=== PATIENT | male | born 1940 | race Caucasian/White ===

== ENCOUNTER 2019-03-06 09:38 | Emergency (ER) | payer OTHER, MEDICARE ==
[2019-03-06 09:45] VITALS: BP 192/73
--- NOTE | 2019-03-06 09:46 | EDPHY ---
H & P Stated Complaint: fall, lt rib pain Time Seen by Provider: 03/06/19 09:45 HPI/ROS: CHIEF COMPLAINT: Left anterior rib pain following mechanical fall HISTORY OF PRESENT ILLNESS: Patient is a pleasant 78-year-old [place] tripped and fell while going to the restroom last night striking his left anterior ribs on the toilet. He did not strike his head or lose consciousness. He has no complaints of headache, neck pain, abdominal pain , back pain or extremity complaints. The patient is not anticoagulated. The patient has moderate pain in the left anterior ribs which is worsened with deep breaths. The patient reports mild dyspnea. REVIEW OF SYSTEMS: Constitutional: normal mentation Eyes: No visual changes ENT: no oral trauma Respiratory: As above Cardiac: No chest pain Gastrointestinal: No nausea, no vomiting, no abdominal pain Genitourinary: No hematuria, no dysuria Musculoskeletal: no extremity pain Skin: no abrasions, no lacerations Neurological: No headache, no numbness, no weakness Back: No midline pain Source: Patient Exam Limitations: No limitations - Personal History Current Tetanus/Diphtheria Vaccine: No Current Tetanus Diphtheria and Acellular Pertussis (TDAP): No - Medical/Surgical History Hx Asthma: No Hx Chronic Respiratory Disease: No Hx Diabetes: Yes Hx Cardiac Disease: No Hx Renal Disease: No Hx Cirrhosis: No Hx Alcoholism: No Hx HIV/AIDS: No Hx Splenectomy or Spleen Trauma: No Other PMH: prostatectomy, pre-diabetic, arthritis, chronic pancreatitis - Social History Smoking Status: Never smoked - Physical Exam Exam: General Appearance: Alert, no distress Head: Atraumatic Eyes: Pupils equal, round, reactive ENT, Mouth: No hemotympanum, no oral trauma Neck: Nontender, trachea midline Respiratory: Tenderness to palpation left anterior chest wall, no deformity or subcutaneous emphysema noted, lungs clear to auscultation bilaterally Cardiovascular: Regular rate and rhythm Abdomen: Abdomen is soft and nontender, pelvis stable Skin: No lacerations, No abrasion Back: No midline T/L/S pain Extremities: Nontender, full range of motion Neurological: A&Ox3, normal motor function, normal sensory exam Constitutional: Initial Vital Signs Temperature (C) 36.5 C 03/06/19 09:40 Heart Rate 63 03/06/19 09:40 Respiratory Rate 16 03/06/19 09:40 Blood Pressure 192/73 H 03/06/19 09:40 O2 Sat (%) 93 03/06/19 09:40 O2 Delivery Mode Room Air Allergies/Adverse Reactions: No Known Allergies Allergy (Unverified 03/06/19 09:45) Home Medications: Medication Instructions Recorded Amlodipine Besylate 03/06/19 Crestor 03/06/19 Doxazosin Mesylate 03/06/19 Edarbyclor 40-25 mg Tablet 03/06/19 Famotidine 03/06/19 Hydrocodone/APAP 5/325 [Ell[place] 1 - 2 each PO Q6 PRN #20 tab 03/06/19 5/325] Metformin HCl 03/06/19 Oxycodone HCl 03/06/19 Medical Decision Making - Diagnostics Imaging Results: Imaging Impressions Ribs w/Chest X-Ray 03/06/19 09:55 Impression: 1. No rib fracture identified. 2. Presumably old rightward compressions of L1 and L2 associated with a lumbar levoscoliosis and thoracic dextroscoliosis. ED Course/Re-evaluation: Patient presents the ED with rib pain following mechanical fall. The patient have point tenderness noted on exam. Vital signs are stable. X-ray demonstrates no evidence of an obvious rib fracture. Patient has been informed of the possibility of a occult rib fracture given his exam. The patient will be discharged home with a prescription for pain medications. He is advised to return to the ED for markedly worsening symptoms or other concerns. Differential Diagnosis: Differential diagnosis considered includes rib fracture, pneumothorax, hemothorax, costochondritis Departure - Departure Disposition: Home, Routine, Self-Care Clinical Impression: Rib pain on left side Condition: Good Instructions: Rib Fracture (ED) Additional Instructions: 1. Take Ibuprofen or Motrin 600 mg by mouth three times a day. 2. [place] as needed for severe pain 3. Your x-ray demonstrates no evidence of an obvious fracture. Sometimes nondisplaced hairline fractures cannot be seen. Based upon your exam today I do believe you likely have a small fracture not seen on the x-ray today. 4. Please return to the ED immediately for any with increasing shortness of breath or other concerns. Return to the ED immediately for any abdominal pain or acute back pain.
== END 2019-03-06 10:37 | disposition home or self-care (01) ==
DX: R07.81 Pleurodynia (principal); W01.198A Fall on same level from slipping, tripping and stumbling with subsequent striking against other object, initial encounter; Y92.002 Bathroom of unspecified non-institutional (private) residence as the place of occurrence of the external cause